=== PATIENT | female | born 1995 | race Caucasian/White ===

== ENCOUNTER 2017-05-13 06:55 | Day surgery (SDC) | payer OTHER ==
[~2017-05-13] VITALS: Ht 167.6 cm; Wt 81.7 kg
[~2017-05-13 06:55] MED LIST: AMETHYST1 EACH PO; PROZAC40 MG PO
--- NOTE | 2017-05-13 10:02 | NUR ---
JERRY 0945: RN CALLED DOWN TO PT'S ROOM. PARENTS REPORT THAT THE PT IS STARTING TO GET REALLY ITCHY AND RED ON HER SCALP. DR. RAUSCH IS FOUND AND ASKED IF HE WOULD LIKE TO PRESCRIBE SOMETHING FOR HER. VERBAL ORDER TAKEN FOR 25MG PO BENADRYL NOW/ONCE. UPON ENTERING PT'S ROOM WITH THE MEDICATION HER REDNESS HAS WORSENED AND EXTENDED DOWN THE ENTERITY OF HER FACE AND TO HER CHEST. NOT ENTIRELY SURE WHAT THE PT WAS GIVEN TO CAUSE THE REDNESS, IT STARTED PRIOR TO THE ADMINISTRATION OF VERSED AND VANCOMYCIN, THE ONLY THING GIVEN PRIOR WAS A SMALL SUBQ INJECTION OF LIDOCAINE.
--- NOTE | 2017-05-13 13:00 | NUR ---
05/13/17 1300 ElifAlistair jain SAT 100, 02 DECREASED TO 6L.
--- NOTE | 2017-05-13 15:36 | NUR ---
LE 1438: PT ARRIVES TO DS FROM PACU. LE 1450: ARRIVE INTO PT'S ROOM AND SHE HAS URINATED IN HER BED AND REPORTS THAT SHE NEEDS TO USE THE RESTROOM AGAIN AND SHE STARTS TO URINATE AGAIN. WITH THE ASSISTANCE OF A 2ND RN WE TRANSFER HER TO HER WHEELCHAIR TO GET HER UP TO THE BATHROOM. PT IS ABLE TO HELP WITH THE ASSIST AND PRECEEDS TO CONTINUE TO URINATE IN THE TOLIET. PT'S GOWN AND BEDDING ARE CHANGED. PT IS HELPED BACK INTO BED AND ENCOURAGED TO DRINK WATER AND SNACK ON CRACKERS. CEREAL IS ORDERED FOR THE PT AT HER REQUEST. PT IS ALSO GIVEN PAIN MEDICATION ORALLY, IV WAS FIRST CHOICE, BUT IV SITE WAS NOT PATENT AND KINKED IN 2 PLACES.
[2017-05-13] MEDS ORDERED: NORCO 7.5-3251 EACH PO (15:55)
--- NOTE | 2017-05-13 16:30 | NUR ---
PT'S FAMILY INFORMED OF NEEDING TO HAVE THE WOUND ON RIGHT HEEL DEBRIDED. SURGERY IS SET FOR NEXT WEDNESDAY AND PT IS SET TO ARRIV AT 7AM. PICTURE WAS SHOWN TO FAMILY, FAMILY REQUESTS A COPY OF THE PICTURE, DR. RAUSCH TO BE CALLED TO ASK.
--- NOTE | 2017-05-13 16:47 | NUR ---
PHONE CALL TO DR RAUSCH REGARDING HEEL DECUBITIS. DR RAUSCH REPORTS HE WOULD LIKE PT TO GET WOUND CARE ON AN OUTPATIENT BASIS. DR AINSLEY WOUND IS PREDOMINANTLY ESCHAR AND SUCH NEEDS DEEP DEBRIDEMENT. DR RAUSCH WOULD LIKE DAY SURGERY TO FOLLOW UP WITH KACI IN HIS OFFICE TO GET THE PATIENT SCHEDULED FOR DEEP DEBRIDEMENT NEXT WEEK. KACI REPORTS SHE WILL WORK ON AUTHORIZATION AND PATIENT IS SCHEDULED FOR FRIDAY 05/18. FAMILY INFORMED OF PLAN OF CARE AND ALL VERBALIZE UNDERSTANDING.
--- NOTE | 2017-05-17 08:13 | OR ---
[facility] [address] [place], [place] [address] Signed DATE OF SERVICE: 05/13/2017 PREOPERATIVE DIAGNOSIS: Recurrent dislocation, right patella. POSTOPERATIVE DIAGNOSIS: Recurrent dislocation, right patella. PROCEDURE: Medial patellofemoral ligament reconstruction with semitendinosus graft. SURGEON: Harjit Rausch MD ANESTHESIA: General. SPECIMENS: There were no specimens. COMPLICATIONS: None. TOURNIQUET TIME: About an hour. DESCRIPTION OF PROCEDURE: The patient was taken to the operating room. After anesthesia was induced, airway secured. The right lower extremity was positioned, prepped and draped in a routine sterile fashion. The leg was exsanguinated with an Esmarch bandage. Pneumatic tourniquet about the thigh was inflated to 300 mmHg pressure. We then made a 3 cm vertical incision at the medial border of the patella. Skin was divided sharply. Subcutaneous tissue was bluntly spread. We used the tip of the Bovie to expose the medial border of the patella. We then drilled two K-wires across the patella, one in the mid portion and one slightly more superior. These were then over drilled with a 3 mm bur to a depth of about 25 mm. The wires were then left in place. We then proceeded to the back table. The graft had already been thawed. We trimmed and tubularized the terminal 2-1/2 cm of the graft with 2-0 FiberWire suture. We then used the swivel locks to secure the ends of the graft into each of the patellar tunnels. Before securing the second half of the graft, we did place the tight rope device over the graft. After we had placed both of the swivel locks, the graft was placed anteriorly and covered with a moist lap. We then flexed the knee about 30 degrees. Under fluoroscopic control, we used the femoral alignment jig to localize the spot for placing the femoral tunnel. Once we had successfully located the femoral tunnel using the jig and guide, it was drilled with the spade tip bit. This was allowed to exit on the lateral side. We then over drilled the femur with the 7 mm reamer. We then used the spade tip to fit to draw the tightrope through the femoral tunnel and out the lateral side. We were able to flip the button, although because of the patient's copious soft tissue layer, there was a little bit of a struggle to sit down. We slightly enlarged the medial incision and were able to get the abutting right down to the bone. Electronically Signed By: HARJIT RAUSCH MD 05/17/17 0813 PATIENT NAME: MYRON GREY OPERATIVE REPORT DATE OF : [birth year] PHYSICIAN: HARJIT RAUSCH MD REPORT #: [id number] REPORT IS CONFIDENTIAL AND NOT TO BE RELEASED WITHOUT AUTHORIZATION [address] [address] Signed We removed the loose sutures and then tension of the graft. We placed a small curved clamp underneath the tendon graft to avoid over tightening of the graft. Once we had secured the graft, the knee was placed through range of motion. She had excellent flexion and excellent extension. The graft did not appear to abrade the medial femoral condyle and I kept her from subluxing the patella more than about 25% of its width at neutral or at 30 degrees of flexion. The tightrope sutures were then cut off underneath the skin. The wounds were gently irrigated and closed in a standard fashion. Sterile dressings were applied, and she was placed in a 4 strep hinged knee brace, locked out in full extension. She was awakened to recovery room, where she arrived in stable condition. Counts were correct and antibiotic protocols were followed. MD NADEGE Sage/Stefaniel /[id number] Electronically Signed By: HARJIT RAUSCH MD 05/17/17 0813 PATIENT NAME: MYRON GREY OPERATIVE REPORT DATE OF : [birth year] PHYSICIAN: HARJIT RAUSCH MD REPORT #: [id number] REPORT IS CONFIDENTIAL AND NOT TO BE RELEASED WITHOUT AUTHORIZATION
== END 2017-05-13 17:10 | disposition home or self-care (01) ==
LOC: DS 06:55 → OPS 06:55 → DS 08:45 → OPS 09:45
PROVIDERS: Orthopaedic Surgery
PROC: 0SQC0ZZ Repair Right Knee Joint, Open Approach (ICD-10-PCS; principal; 2017-05-13 10:15)
DX: M22.01 Recurrent dislocation of patella, right knee (principal); Z88.1 Allergy status to other antibiotic agents
CPT/HCPCS: 01320; 73560; C1713; C1762; J1100; J1885; J2250; J2270; J2405; J2704; J2765; J3010; J3370; J7120

== ENCOUNTER 2017-05-18 08:53 | Day surgery (SDC) | payer OTHER ==
[~2017-05-18] VITALS: Ht 167.6 cm; Wt 81.7 kg
[~2017-05-18 08:53] MED LIST changes: +NORCO 7.5-3251 EACH PO
[2017-05-18] MEDS ORDERED: PERCOCET 7.5-31 EACH PO (09:27)
--- NOTE | 2017-05-18 10:19 | NUR ---
05/18/17 Alysa9 Michelle Victor 1013-PATIENT ARRIVED TO PACU ON 6L MASK O2 SAT 100% SR. PATIENT REACTIVE OPENS EYES. FALLS BACK ASLEEP. PORTABLE SNAP WOUND VAC IN PLACE DRESSING CDI. CAP REFILL LESS THAN 1 SECOND. ZOEY PEDAL PULSE. 1018-PATIENT AROUSING DENIES PAIN OR NAUSEA.
--- NOTE | 2017-05-20 07:07 | OR ---
[facility] [address] [facility] [place], [place] [address] Signed DATE OF SERVICE: 05/18/2017 PREOPERATIVE DIAGNOSIS: Pressure ulcer, right posterior heel POSTOPERATIVE DIAGNOSIS: Pressure ulcer, right posterior heel. PROCEDURE: Debridement and application of SNaP device. SURGEON: Dr. Rausch. ANESTHESIA: General. SPECIMENS: None. COMPLICATIONS: None. TOURNIQUET: Was not used. WHAT WAS DONE: Patient was taken to the operating room. After anesthesia was induced, airway secured, the patient was positioned, prepped and draped in a routine sterile fashion. We then used a small geoffrey forceps and a 15 blade to excisionally debride the eschar on the posterior aspect of the heel. There is some skin and subcutaneous tissue involvement. The Achilles tendon looked excellent and there was no penetration down the bone . After gently debriding it, hemostasis was achieved with electrocautery. We then applied the SNaP device and we had a good seal. The wound was gently wrapped in a bulky dressing. She was awakened, taken to the recovery room where she arrived in stable condition. Counts were correct, and antibiotic protocols were followed. MD NADEGE Sage/Artur /[id number] Electronically Signed By: BARBIE RAUSCH MD 05/20/17 0707 PATIENT NAME: MYRON GREY OPERATIVE REPORT DATE OF : [birth year] PHYSICIAN: BARBIE RAUSCH MD REPORT #: [id number] REPORT IS CONFIDENTIAL AND NOT TO BE RELEASED WITHOUT AUTHORIZATION
== END 2017-05-18 11:27 | disposition home or self-care (01) ==
LOC: OPS 08:53 → DS 08:53 → OPS 09:45
PROVIDERS: Orthopaedic Surgery
PROC: 0JBN0ZZ Excision of Right Lower Leg Subcutaneous Tissue and Fascia, Open Approach (ICD-10-PCS; principal; 2017-05-18 09:45)
DX: L89.619 Pressure ulcer of right heel, unspecified stage (principal); Z88.1 Allergy status to other antibiotic agents
CPT/HCPCS: 00400; J1885; J2250; J2405; J7120

== ENCOUNTER 2017-06-29 06:57 | Day surgery (SDC) | payer OTHER ==
[~2017-06-29] VITALS: Ht 167.6 cm; Wt 81.7 kg
[~2017-06-29 06:57] MED LIST changes: +PERCOCET 7.5-31 EACH PO
--- NOTE | 2017-06-29 10:00 | NUR ---
06/29/17 1000 Michelle Victor 0947-PATIENT ARRIVED TO PACU ON 9L MASK O2 SAT 100% SR. NONAROUSABLE. DRESSING TO RIGHT THIGH AND RIGHT HEEL CDI. GOOD CAP REFILL AND WARMTH. 0953-RN ASSISTING TO MAINTAIN OPEN AIRWAY. 9L MASK O2 SAT 100%. 0958-PATIENT MAINTAINING OWN AIRWAY. DR. RAUSCH AT BEDSIDE. PILLOW PLACED BENEATH RIGHT HEEL AND ORDER TO KEEP PRESSURE OFF. 1000-PATIENT OPENING EYES TO VERBAL STIMULI AND FALLS BACK ASLEEP.
--- NOTE | 2017-06-29 10:55 | NUR ---
PT RESTING IN BED WITH PARENTS AND GRANDMOTHER BY HER SIDE. PT WAS RATHER QUIET, FAMILY SEEMED SUPPORTIVE AND INFORMED FOR TODAY. G.MOTHER REQUESTED PRAYER, AND OTHERS AGREED. WILL FOLLOW NEEDED
--- NOTE | 2017-06-29 11:39 | NUR ---
LE 1040 PT RETURNED FROM PACU C/O R HEEL PAIN 06/03. VITAL SIGNS TAKEN. R LEG ELEVATED WITH 2 PILLOWS AND HEEL NOT TOUCHING PILLOW/BED. 1054 MORPHINE 2MG GIVEN IV. PT EATING CRACKERS. CEREAL ORDERED. 1130 ATE 100% OF CEREAL. UP TO BATHROOM WITH 2 PERSON ASSIST. VOIDED. BACK IN BED VISITING WITH FAMILY. 1133 ONE NORCO 5/325 GIVEN PO FOR R HEEL PAIN.
[2017-06-29] MEDS ORDERED: ULTRAM50 MG PO (11:55)
--- NOTE | 2017-06-29 12:36 | NUR ---
LE 1215 PT STATES "MY PAIN IS GONE." DC INSTRUCTIONS GIVEN TO PT AND PARENTS. LEFT VIA W/C.
--- NOTE | 2017-07-01 07:07 | OR ---
[facility] [address] [place], [place] [address] Signed DATE OF PROCEDURE: 06/29/17 PREOPERATIVE DIAGNOSIS: Pressure ulcer, right posterior heel. POSTOPERATIVE DIAGNOSIS: Pressure ulcer, right posterior heel. PROCEDURE PERFORMED: Split-thickness skin graft. SURGEON: Harjit Ray MD. ANESTHESIA: General. SPECIMENS AND COMPLICATIONS: There were no specimens or complications. TOURNIQUET: Not used. DESCRIPTION OF PROCEDURE The patient was taken to the operating room. After anesthesia was induced and airway secured, the patient was placed in the left lateral decubitus position and prepped and draped in the routine sterile fashion. The ulcerated area over the heel was identified. The skin was debrided about the margin. The tenosynovium over the heel cord was still intact. There did not appear to be any involvement of or degradation of the heel cord. The wound was gently irrigated. Hemostasis was achieved with electrocautery. The wound was measured and found to be about 2 x 1.5 cm. A 07/1000 inch thick split-thickness skin graft of that same size was then harvested off the lateral proximal thigh, which have been previously prepped and draped. The graft was run through the mesher on a 1-1.5 carrier. We then placed it over the ulcerated area and secured it with talisha. A nonadherent dressing was placed over which a bolus type dressing was placed. The wound was dressed with a bulky dressing. The donor site was then dressed with Adaptic, 4x4s, and OpSite. The patient was awakened, taken to recovery room, where they arrived in stable condition. Counts were correct and antibiotic protocols were followed. MD NADEGE Sage/Artur /[id number] Electronically Signed By: HARJIT RAY MD 07/01/1707 PATIENT NAME: MYRON GREY OPERATIVE REPORT DATE OF : [birth year] PHYSICIAN: HARJIT RAY MD REPORT #: [id number] REPORT IS CONFIDENTIAL AND NOT TO BE RELEASED WITHOUT AUTHORIZATION [address] [address] Signed cc: Lisa Garcia PA-C Electronically Signed By: HARJIT RAY MD 07/01/17706 PATIENT NAME: MYRON GREY OPERATIVE REPORT DATE OF : [birth year] PHYSICIAN: HARJIT RAY MD REPORT #: [id number] REPORT IS CONFIDENTIAL AND NOT TO BE RELEASED WITHOUT AUTHORIZATION
== END 2017-06-29 12:15 | disposition home or self-care (01) ==
LOC: OPS 06:57 → DS 06:57 → OPS 08:15 → DS 08:15 → OPS 12:15
PROVIDERS: Orthopaedic Surgery
PROC: 0HRMX74 Replacement of Right Foot Skin with Autologous Tissue Substitute, Partial Thickness, External Approach (ICD-10-PCS; principal; 2017-06-29 08:15)
DX: L89.619 Pressure ulcer of right heel, unspecified stage (principal); Z88.1 Allergy status to other antibiotic agents
CPT/HCPCS: 00400; J0330; J1100; J1885; J2250; J2270; J2370; J2405; J2704; J3010; J7120

== ENCOUNTER 2018-02-18 16:17 | Emergency (ER) | payer OTHER ==
[~2018-02-18] VITALS: Ht 167.6 cm; Wt 81.7 kg
--- OUTSIDE RECORDS SUMMARY | ~2018-02-18 | XMS | Clinical Summary ---
Demographics + + + | Address | [address] | | | [place] [address] | + + + | Home Phone | | + + + | Preferred Language | Unknown | + + + | Marital Status | Single | + + + | Roman Catholic Affiliation | Unknown | + + + | Race | White | + + + | Ethnic Group | Not or | + + + Author + + + | Author | [facility] | + + + | Organization | [facility] | + + + | Address | Unknown | + + + | Phone | Unavailable | + + + Support + + + + + | Name | Relationship | Address | Phone | + + + + + | RASHAD GREY | ECON | [address] | | | | | Unknown | | + + + + + Care Team Providers + +------+ + | Care Blender Operator Name | Role | Phone | + +------+ + | Emilio Ramirez MD | PP | | + +------+ + Source Comments WIL is fully live on both [facility] and [facility] InPatient.[facility] Allergies + + + + + + | Active Allergy | Reactions | Severity | Noted | Comments | | | | | Date | | + + + + + + | Amoxicillin | Hives | | 02/09/20 | | | | | | 06 | | + + + + + + Current Medications + + +-------+---------+------+------+-------+ | Prescription | Sig. | Disp. 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 | + + + + + | Overview: ICD10 | + + Social History + +-------+ +--------+------+ | Tobacco Use | Types | Packs/Day | Years | Date | | | | | Used | | + +-------+ +--------+------+ | Never Assessed | | | | | + +-------+ +--------+------+ + + + | Sex Assigned at | Date Recorded | | | | + + + | Not on file | | + + + Last Filed Vital Signs + + + + | Vital Sign | Reading | Time Taken | + + + + | Blood Pressure | 96/63 | 02/08/2006 9:49 AM PDT | + + + + | Pulse | 81 | 02/08/2006 9:49 AM PDT | + + + + | Temperature | - | - | + + + + | Respiratory Rate | - | - | + + + + | Oxygen Saturation | - | - | + + + + | Inhaled Oxygen | - | - | | Concentration | | | + + + + | Weight | 44.7 kg (98 lb 8.7 | 02/08/2006 9:49 AM PDT | | | oz) | | + + + + | Height | 148 cm (4' 10.27") | 02/08/2006 9:49 AM PDT | + + + + | Body Mass Index | 20.41 | 02/08/2006 9:49 AM PDT | + + + + Plan of Treatment + + + + + | Health Maintenance | Due Date | Last Done | Comments | + + + + + | INFLUENZA VACCINE | | | | | (FLU SHOT) | 8 | | | + + + + + Results Not on filefrom Last 3 Months
--- OUTSIDE RECORDS SUMMARY | ~2018-02-18 | XMS | Clinical Summary ---
Demographics + + + | Address | [address] | | | [place] [address] | + + + | Home Phone | | + + + | Preferred Language | Unknown | + + + | Marital Status | Single | + + + | Taoism Affiliation | Unknown | + + + [...] Team Providers + +------+ + | Care Staff Development Educator Name | Role | Phone | + +------+ + | Emilio Ramirez MD | PP | | + +------+ + Source Comments WIL is fully live on both [facility] Ambulatory and [facility] InPatient.[facility] Allergies + + + + + + [...]
--- OUTSIDE RECORDS SUMMARY | ~2018-02-18 | XMS ---
Demographics + + + | Address | [address] | | | [place] [address] | + + + | Preferred Language | Unknown | + + + | Marital Status | Unknown | + + + | Druze Affiliation | Unknown | + + + | Race | Unknown | + + + | Ethnic Group | Unknown | + + + Author + + + | Author | [facility] | + + + | Organization | [facility] | + + + | Address | [address] | | | [place] [phone] | + + + | Phone | | + + + Care Team Providers + + + + | Care Conveyor Technician Name | Role | Phone | + + + + Unavailable | Unavailable | + + + + PROBLEMS Unknown Problems ALLERGIES Unknown Allergies SOCIAL HISTORY No smoking Hx information available PLAN OF CARE VITAL SIGNS MEDICATIONS Unknown Medications RESULTS No Results PROCEDURES No Known procedures IMMUNIZATIONS No Known Immunizations"
--- OUTSIDE RECORDS SUMMARY | ~2018-02-18 | XMS ---
Demographics + + + | Address | [address] | | | [place] [address] | + + + | Preferred Language | Unknown | + + + | Marital Status | Unknown | + + + | Protestant Affiliation | Unknown | + + + | Race | Unknown | + + + | Ethnic Group | Unknown | + + + Author + + + | Author | [facility] | + + + | Organization | [facility] | + + + | Address | [address] | | | [place] [phone] | + + + | Phone | | + + + Care Team Providers + + + + | Care Devil Tender Name | Role | Phone | + + + + Unavailable | Unavailable | + + + + PROBLEMS Unknown Problems ALLERGIES Unknown Allergies SOCIAL HISTORY No smoking Hx information available PLAN OF CARE VITAL SIGNS MEDICATIONS Unknown Medications RESULTS No Results PROCEDURES No Known procedures IMMUNIZATIONS No Known Immunizations"
--- OUTSIDE RECORDS SUMMARY | ~2018-02-18 | XMS | Clinical Summary ---
Demographics + + + | Address | [address] | | | [place] [address] | + + + | Home Phone | | + + + | Preferred Language | Unknown | + + + | Marital Status | Single | + + + | Taoism Affiliation | 1041 | + + + | Race | Unknown | + + + | Ethnic Group | Unknown | + + + Author + + + | Author | [facility] | | | and [place] | + + + | Organization | [facility] | | | and [place] | + + + | Address | Unknown | + + + | Phone | Unavailable | + + + Support + + +---------+ + | Name | Relationship | Address | Phone | + + +---------+ + | MICHAEL GREY ECON | Unknown | | + + +---------+ + Care Team Providers + +------+ + | Care Manager Lean Name | Role | Phone | + +------+ + PP | Unavailable | + +------+ + Allergies Not on File Current Medications Not on file Active Problems Not on file Social History + +-------+ +--------+------+ | Tobacco [...] on file | | + + + Plan of Treatment + + + + + | Health Maintenance | Due Date | Last Done | Comments | + + + + + | Vaccine: HPV (1 of 3 | | | | | - Female 3 Dose | 5 | | | | Series) | | | | + + + + + | Vaccine: | | | | | Dtap/Tdap/Td (1 - | 3 | | | | Tdap) | | | | + + + + + | CERVICAL CANCER | | | | | SCREENING (PAP EVERY | 5 | | | | 3 YEARS 21-64 ) | | | | + + + + + | Vaccine: Influenza | | | | | (Season Ended) | 8 | | | + + + + + Results Not on filefrom Last 3 Months"
--- OUTSIDE RECORDS SUMMARY | ~2018-02-18 | XMS ---
Demographics + + + | Address | [address] | | | [place] [address] | + + + | Preferred Language | Unknown | + + + | Marital Status | Unknown | + + + | Oriental Orthodox Affiliation | Unknown | + + + | Race | Unknown | + + + | Ethnic Group | Unknown | + + + Author + + + | Author | [facility] | + + + | Organization | [facility] | + + + | Address | [address] | | | [place] [phone] | + + + | Phone | | + + + Care Team Providers + + + + | Care Laundry Clerk Name | Role | Phone | + + + + Unavailable | Unavailable | + + + + PROBLEMS Unknown Problems ALLERGIES Unknown Allergies SOCIAL HISTORY No smoking Hx information available PLAN OF CARE VITAL SIGNS MEDICATIONS Unknown Medications RESULTS No Results PROCEDURES No Known procedures IMMUNIZATIONS No Known Immunizations"
--- OUTSIDE RECORDS SUMMARY | ~2018-02-18 | XMS ---
Demographics + + + | Address | [address] | | | [place] [address] | + + + | Preferred Language | Unknown | + + + | Marital Status | Unknown | + + + | Orthodox Affiliation | Unknown | + + + | Race | Unknown | + + + | Ethnic Group | Unknown | + + + Author + + + | Author | [facility] | + + + | Organization | [facility] | + + + | Address | [address] | | | [place] [phone] | + + + | Phone | | + + + Care Team Providers + + + + | Care Ground Water Technician Name | Role | Phone | + + + + Unavailable | Unavailable | + + + + PROBLEMS Unknown Problems ALLERGIES Unknown Allergies SOCIAL HISTORY No smoking Hx information available PLAN OF CARE VITAL SIGNS MEDICATIONS Unknown Medications RESULTS No Results PROCEDURES No Known procedures IMMUNIZATIONS No Known Immunizations"
--- OUTSIDE RECORDS SUMMARY | ~2018-02-18 | XMS | Clinical Summary ---
Demographics + + + | Address | [address] | | | [place] [address] | + + + | Home Phone | | + + + | Preferred Language | Unknown | + + + | Marital Status | Single | + + + | Alevism Affiliation | 1041 | + + + | Race | Unknown | + + + | Ethnic Group | Unknown | + + + Author + + + | Author | [facility] | | | and [place] | + + + | Organization | [facility] | | | and [place] | [...] Team Providers + +------+ + | Care Marketing Business Analyst Name | Role | Phone | + [...]
--- OUTSIDE RECORDS SUMMARY | ~2018-02-18 | XMS ---
Demographics + + + | Address | [address] | | | [place] [address] | + + + | Preferred Language | Unknown | + + + | Marital Status | Unknown | + + + | Scientology Affiliation | Unknown | + + + | Race | Unknown | + + + | Ethnic Group | Unknown | + + + Author + + + | Author | [facility] | + + + | Organization | [facility] | + + + | Address | [address] | | | [place] [phone] | + + + | Phone | | + + + Care Team Providers + + + + | Care Mailroom Coordinator Name | Role | Phone | + + + + Unavailable | Unavailable | + + + + PROBLEMS Unknown Problems ALLERGIES Unknown Allergies SOCIAL HISTORY No smoking Hx information available PLAN OF CARE VITAL SIGNS MEDICATIONS Unknown Medications RESULTS No Results PROCEDURES No Known procedures IMMUNIZATIONS No Known Immunizations"
[~2018-02-18 16:17] MED LIST changes: +ULTRAM50 MG PO
[2018-02-18] MEDS ORDERED: NORCO 10-325 T1 EACH PO (17:18)
== END 2018-02-18 17:40 | disposition home or self-care (01) ==
LOC: ED 16:17
PROC: 0HCQXZZ Extirpation of Matter from Finger Nail, External Approach (ICD-10-PCS; principal; 2018-02-18)
DX: S62.632A Displaced fracture of distal phalanx of right middle finger, initial encounter for closed fracture (principal); S62.634A Displaced fracture of distal phalanx of right ring finger, initial encounter for closed fracture; S60.131A Contusion of right middle finger with damage to nail, initial encounter; S60.141A Contusion of right ring finger with damage to nail, initial encounter; Z88.1 Allergy status to other antibiotic agents; Z88.0 Allergy status to penicillin; Z79.899 Other long term (current) drug therapy; W23.0XXA Caught, crushed, jammed, or pinched between moving objects, initial encounter
CPT/HCPCS: 11740; 73130; 99283

== ENCOUNTER 2020-05-22 08:49 | Day surgery (SDC) | payer OTHER ==
[~2020-05-22] VITALS: Ht 167.6 cm; Wt 93.0 kg
[~2020-05-22 08:49] MED LIST changes: +NORCO 10-325 T1 EACH PO
--- NOTE | 2020-05-22 10:22 | NUR ---
05/22/20 Nicole2 Michelle Victor 1015-PATIENT ARRIVED TO PACU ON 6L MASK RR EVEN. NONAROUSABLE. IVF INFUSING. SR. 1016-PATIENT AROUSING TO VERBAL STIMULI OPENING EYES. DENIES PAIN OR NAUSEA. DROWSY DOZES BACK TO SLEEP.
--- NOTE | 2020-05-23 12:53 | PATH ---
[facility] [address] [place], [place] [address] Signed ORDERING PHYSICIAN: Monie Florez MD PATIENT NAME: MYRON GREY GENDER: F : 1995 Prior History: DATE CASE NUM ADEQUACY DIAGNOSIS HPV RESULTS PHYSICIAN The 5 most recent reports are included. This history does not include results of pap smears performed at another laboratory. SPECIMEN(S): Cervical/ Endocervical CLINICAL HISTORY: Routine Pap Smear, Last Pap Date: 0, Contraceptive Management CYTOLOGIC INTERPRETATION: Negative for intraepithelial lesion or malignancy. TECHNICAL NOTES: To improve disease detection, this slide is screened using automated intelligence technology. This specimen was received in a vial of liquid-based fixative and was processed using thin layer Pap technology. SPECIMEN ADEQUACY: Satisfactory for evaluation. Endocervical and/or metaplastic cells present. ADDITIONAL NOTES: The Pap smear is a screening test designed to aid in the detection of premalignant and malignant conditions of the uterine cervix. It is not a diagnostic procedure and should not be used as the sole means of detecting cervical cancer. Both false-positive and false-negative reports do occur. This document contains private and confidential health information by state and federal law. If you have received in error, please call [phone]. PERFORMING LABORATORY: Technical preparation was performed by [facility], [address] [place] [address] (Legal Practice Manager: Grant Pagan D.O.; CLIA#: [id number]). PATIENT NAME: MYRON GREY PATHOLOGY DATE OF : [birth year] REPORT #: [id number] PHYSICIAN: [facility] PCP: MANNIE CUEVAS PAC REPORT IS CONFIDENTIAL AND NOT TO BE RELEASED WITHOUT AUTHORIZATION [address] [address] Signed Diagnostician: Nemesio PUTNAM(ASCP) Cassandra Architect Electronically Signed 05/23/2020 Copies: ~ PATIENT NAME: MYRON GREY PATHOLOGY DATE OF : [birth year] REPORT #: [id number] PHYSICIAN: [facility] PATHOLOGY PCP: MANNIE CUEVAS PAC REPORT IS CONFIDENTIAL AND NOT TO BE RELEASED WITHOUT AUTHORIZATION
--- NOTE | 2020-05-25 10:21 | OR ---
[facility] [address] [place], [place] [address] Signed DATE OF OPERATION: 05/22/2020 SURGEON: Monie Florez MD PREOPERATIVE DIAGNOSIS: Autism, mental disability, need for pelvic exam. POSTOPERATIVE DIAGNOSIS: Autism, mental disability, normal pelvis. PROCEDURE: Exam under anesthesia, Pap smear. ANESTHESIA: IV sedation. ESTIMATED BLOOD LOSS: Minimal. DRAINS: None. INDICATIONS AND FINDINGS: The patient is a 24-year-old female, zero, who is autistic and mentally disabled, who needs a Pap smear. The patient has no bean snipper complaints. DESCRIPTION OF PROCEDURE: The patient was placed in the dorsal lithotomy position after IV sedation. Exam under anesthesia revealed a normal perineum. The hymen was intact. The vagina had no lesions. The cervix was usually visualized and a Pap smear done. It was slightly friable with the Pap smear. The speculum was then removed and a bimanual exam was done and the uterus and cervix and ovaries appeared normal. The procedure was then terminated. The patient was taken to the recovery room in good condition. Monie Florez MD Electronically Signed By: MONIE FLOREZ MD 05/25/20 1021 PATIENT NAME: MYRON GREY OPERATIVE REPORT DATE OF : [birth year] REPORT #: [id number] PHYSICIAN: MONIE FLOREZ MD PCP: MANNIE CUEVAS PAC REPORT IS CONFIDENTIAL AND NOT TO BE RELEASED WITHOUT AUTHORIZATION [address] [place], [place] [address] Signed [facility] /[id number] Copies: ~ Electronically Signed By: MONIE FLOREZ MD 05/25/20 1021 PATIENT NAME: MYRON GREY OPERATIVE REPORT DATE OF : [birth year] REPORT #: [id number] PHYSICIAN: MONIE FLOREZ MD PCP: MANNIE CUEVAS PAC REPORT IS CONFIDENTIAL AND NOT TO BE RELEASED WITHOUT AUTHORIZATION
== END 2020-05-22 11:30 | disposition home or self-care (01) ==
LOC: OPS 08:49 → DS 08:49
PROVIDERS: Obstetrics & Gynecology
PROC: 0WJR0ZZ Inspection of Genitourinary Tract, Open Approach (ICD-10-PCS; principal; 2020-05-22 06:45)
DX: F84.0 Autistic disorder (principal); F79 Unspecified intellectual disabilities
CPT/HCPCS: 00940; J1885; J2001; J2704; J7121

== ENCOUNTER 2021-11-27 19:17 | Emergency (ER) | payer OTHER ==
[~2021-11-27] VITALS: Ht 167.6 cm; Wt 93.0 kg
[2021-11-27] MEDS ORDERED: NAPROSYN500 MG PO (20:20)
== END 2021-11-27 20:29 | disposition home or self-care (01) ==
LOC: ED 19:17
DX: S80.02XA Contusion of left knee, initial encounter (principal); Z88.0 Allergy status to penicillin; Z88.1 Allergy status to other antibiotic agents; Z79.899 Other long term (current) drug therapy; W18.30XA Fall on same level, unspecified, initial encounter
CPT/HCPCS: 73560; 99283-25

== ENCOUNTER 2023-04-09 19:40 | Emergency (ER) | payer OTHER ==
[~2023-04-09] VITALS: Ht 167.6 cm; Wt 93.0 kg
[~2023-04-09 19:40] MED LIST changes: +NAPROSYN500 MG PO
[2023-04-09] MEDS ORDERED: HYDROCODON-ACE1 EA10 PO (20:49)
[2023-04-09 21:40] VITALS: BP 122/72
[2023-04-12] MEDS ORDERED: DILAUDID2 MG PO (20:17)
== END 2023-04-09 21:18 | disposition home or self-care (01) ==
LOC: ED 19:40
DX: S83.014A Lateral dislocation of right patella, initial encounter (principal); W18.30XA Fall on same level, unspecified, initial encounter; Z79.890 Hormone replacement therapy; Z88.0 Allergy status to penicillin; Z88.1 Allergy status to other antibiotic agents
CPT/HCPCS: 73560; 99283-25; A9270; J1170

== ENCOUNTER 2025-03-15 08:19 | Day surgery (SDC) | payer OTHER ==
[~2025-03-15] VITALS: Ht 167.6 cm; Wt 113.6 kg
[~2025-03-15 08:19] MED LIST changes: +ALL DAY ALLERGY10 MG PO; +DILAUDID2 MG PO; +HYDROCODON-ACE1 EA10 PO; +IBLOOD GLUCOSE TEST STRIP 1 EA TEST VI PRN; +LACTATED RINGER'S 1,000 ML IV SCH; +LIDOCAINE HCL 1% 5 ML SDV INJ ONE; +MULTI VITAMIN1 EACH PO; +VIT C-ECHINACE1 EACH PO
[2025-03-15 09:12] VITALS: BP 99/64
[2025-03-15 09:30] LABS: BASOPHILS 0.3 % (0.1-1.2); EOSINOPHILS 1.1 % (0.7-5.8); HEMATOCRIT 37.4 % (34.1-44.9); HEMOGLOBIN 12.4 g/dL (11.2-15.7); LYMPHOCYTES 20.5 % (19.3-51.7); MCH 29.7 PG (25.6-32.2); MCHC 33.2 g/dL (32.2-35.5); MCV 89.5 fL (79.4-94.8); MONOCYTES 6.1 % (4.7-12.5); NEUTROPHILS 71.8 % (34.0-71.1); PLATELET COUNT 267 K/uL (182-369); RBC 4.18 M/uL (3.93-5.22)
[2025-03-15] MEDS ORDERED: propofoL 200 MG/20 ML VIAL ONE ×2 (10:07→10:33)
[2025-03-15] MEDS ORDERED: LIDOCAINE HCL 2% 5 ML SDV ONE (10:07)
[2025-03-15] MEDS ORDERED: fentaNYL citrate 50 MCG/ML SDV IV PRN (10:15)
[2025-03-15] MEDS ORDERED: NALOXONE HCL 0.4 MG SYR IV PRN ×2 (10:15→11:00)
[2025-03-15] MEDS ORDERED: droPERidol 5 MG/2 ML VIAL IV PRN (10:15)
[2025-03-15] MEDS ORDERED: PROCHLORPERAZINE EDISYLATE 10 MG/2 ML VIAL IV PRN (10:15)
[2025-03-15] MEDS ORDERED: IBLOOD GLUCOSE TEST STRIP 1 EA TEST VI PRN (10:15)
[2025-03-15] MEDS ORDERED: ondansetron HCL 4 MG/2 ML VIAL IV PRN (10:15)
--- NOTE | 2025-03-15 10:56 | NUR ---
03/15/25 1056 Christine Velasquez 1044-PT ARRIVES TO PACU VIA STRETCHER, PT AWAKENS TO VOICE BUT FALLS BACK TO SLEEP EASILY, VSS ON 4L VIA MASK, RR EVEN AND UNLABORED. 1050-PT TITRATED TO RA, VS REMAIN STABLE, PT DENIES PAIN OR NAUSEA.
[2025-03-15 11:10] VITALS: BP 113/66
[2025-03-18] MEDS ORDERED: CALCIUM 500 MG1 EAC4 (21:11)
[2025-03-18] MEDS ORDERED: PYRIDIUM200 MG PO (22:33)
[2025-03-18] MEDS ORDERED: MACROBID 100 M100 MG PO (22:33)
--- NOTE | 2025-04-04 11:19 | PATH ---
[facility] [address], [place] [address] Signed ORDERING PHYSICIAN: Shanna Reynolds MD PATIENT NAME: MYRON GREY GENDER: F : 1995 Prior History: DATE CASE NUM ADEQUACY DIAGNOSIS HPV RESULTS PHYSICIAN 05/22/20 [id number] Satisfactory STEVE Florez MD 05/22/20 [id number] Satisfactory STEVE Florez MD The 5 most recent reports are included. This history does not include results of pap smears performed at another laboratory. SPECIMEN(S): Cervical/ Endocervical CLINICAL HISTORY: Routine Pap Smear CYTOLOGIC INTERPRETATION: Negative for intraepithelial lesion or malignancy. TECHNICAL NOTES: To improve disease detection, this slide is screened using automated intelligence technology. This specimen was received in a vial of liquid-based fixative and was processed using thin layer Pap technology. SPECIMEN ADEQUACY: Satisfactory for evaluation. Endocervical and/or benign metaplastic cells absent. An interfering substance is present. Blood or some other interfering foreign material is present that is obscuring the cells. This specimen has been reprocessed using alternate specimen preparation methods in an attempt to increase cellularity. ADDITIONAL NOTES: The Pap smear is a screening test designed to aid in the detection of premalignant and malignant conditions of the uterine cervix. It is not a diagnostic procedure and should not be used as the sole means of detecting cervical cancer. Both false-positive and false-negative reports do occur. PATIENT NAME: MYRON GREY PATHOLOGY DATE OF : [birth year] REPORT #: [id number] PHYSICIAN: TERESA MARTINEZ PCP: MANNIE CUEVAS PAC REPORT IS CONFIDENTIAL AND NOT TO BE RELEASED WITHOUT AUTHORIZATION [place] [id number] [address] Signed PERFORMING LABORATORY: [facility], [address] [place], [place] [address] [address] (CLIA#: [id number]). Screening was performed by [facility], [address] [place], [place] [address] [place] [address] (CLIA#: [id number]). Diagnostician: Asher PUTNAM (ASCP) Resident Care Associate Electronically Signed 04/04/2025 Copies: ~ PATIENT NAME: MYRON GREY PATHOLOGY DATE OF : [birth year] REPORT #: [id number] PHYSICIAN: TERESA MARTINEZ PCP: MANNIE CUEVAS PAC REPORT IS CONFIDENTIAL AND NOT TO BE RELEASED WITHOUT AUTHORIZATION
== END 2025-03-15 11:15 | disposition home or self-care (01) ==
LOC: OPS 08:19 → DS 08:20 → OPS 09:30 → EDSTATUS 12:30 → DSVR 12:30 → OPS 12:30
PROVIDERS: Nurse Anesthetist, Certified Registered; ATTEND Obstetrics & Gynecology
PROC: 8E0UXY7 Examination of Female Reproductive System (ICD-10-PCS; principal; 2025-03-15 09:30)
DX: Z01.419 Encounter for gynecological examination (general) (routine) without abnormal findings (principal); F84.0 Autistic disorder; F81.9 Developmental disorder of scholastic skills, unspecified; G47.33 Obstructive sleep apnea (adult) (pediatric); Z79.899 Other long term (current) drug therapy; Z88.1 Allergy status to other antibiotic agents; Z88.8 Allergy status to other drugs, medicaments and biological substances
CPT/HCPCS: 00860; 36415; 84703; 85025; J2003; J2704; J7121